=== PATIENT | male | born 1980 | race Caucasian/White ===

== ENCOUNTER 2018-11-29 06:08 | Emergency (ER) | payer BC, SELFPAY ==
[2018-11-29] MEDS ORDERED: DOXYCYCLINE 100 MG CAP PO ONE (06:46)
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
[2018-11-29] MEDS ORDERED: KETOROLAC 30 MG/ML INJ ONE (07:11)
[2018-11-29] MEDS ORDERED: CYCLOBENZAPRINE 10 MG TAB ONE (07:11)
--- NOTE | 2018-11-29 10:40 | EKG ---
Test Date: 2018-11-29 Test Time: 06:54:27 Assistant Corporate Secretary: NOAH MEASUREMENT RESULTS: Intervals: Rate: 90 FL: 172 QRSD: 94 QT: 352 QTc: 430 Springer: P: 48 FL: 172 QRS: 46 T: 46 INTERPRETIVE STATEMENTS: Normal sinus rhythm Normal ECG Compared to ECG 11/01/2007 06:48:39 No significant changes Electronically Signed On 11-29-18 10:39:22 CDT by Wyatt Herrmann
== END 2018-11-29 07:16 | disposition home or self-care (01) ==
LOC: ER 06:08
DX: S40.261A Insect bite (nonvenomous) of right shoulder, initial encounter (principal); I10 Essential (primary) hypertension; F90.9 Attention-deficit hyperactivity disorder, unspecified type; Z72.0 Tobacco use
CPT/HCPCS: 93005; 96372; 99283

== ENCOUNTER 2021-01-09 17:49 | Emergency (ER) | payer OTHER, SELFPAY ==
--- NOTE | 2021-01-09 18:54 | RAD REPORT ---
EXAM DESCRIPTION: RAD - Chest Pa And Lat (2 Views) - 01/09/2021 6:44 pm CLINICAL HISTORY: CHEST PAIN COMPARISON: CHEST PA AND LAT 2 VIEW dated 06/15/2008; CHEST PA AND LAT 2 VIEW dated 06/14/2008; CHEST SINGLE VIEW dated 06/08/2008; CHEST SINGLE VIEW dated 06/07/2008 FINDINGS: Lines: None. Lungs: No evidence of edema or pneumonia. Pleural: No significant pleural effusions or pneumothorax. Cardiac: The heart size is within normal limits. Bones: No acute fractures. Remote left-sided rib fractures . Other: IMPRESSION: No acute cardiopulmonary disease.
[2021-01-09 20:00] LABS: Absolute Lymphocytes (CBC) 1.2 K/uL (0.7-4.9); Basophils % 0.6 % (0-1.3); Hematocrit 48.6 % (39.6-49.0); Lymphocytes % 28.9 % (15.3-44.8); MPV 8.2 fL (7.6-11.3); RBC Red Blood Cell Count 5.31 M/uL (4.33-5.43)
[2021-01-09] MEDS ORDERED: KETOROLAC 30 MG/ML INJ ONE (20:08)
[2021-01-09 20:46] LABS: ALT/SGPT 57 U/L (12-78); AST/SGOT 38 U/L (15-37); Albumin 3.8 g/dL (3.4-5.0); Alkaline Phosphatase 71 U/L (45-117); BUN Blood Urea Nitrogen 10 mg/dL (7-18); Bicarbonate 30 mmol/L (21-32); Bilirubin Direct 0.1 mg/dL (0-0.2); Bilirubin Total 0.4 mg/dL (0.2-1.0); Glucose Level 93 mg/dL (74-106); Magnesium 2.1 mg/dL (1.8-2.4); NT PRO-BNP 13 pg/mL (<125); Potassium 4.7 mmol/L (3.5-5.1); Protein, Total 7.2 g/dL (6.4-8.2); Sodium Level 140 mmol/L (136-145); Troponin (Emerg Dept Use Only) < 0.02 ng/mL (0.0-0.045)
[2021-01-09 21:14] LABS: Protime INR 0.96
--- NOTE | 2021-01-09 21:50 | RAD REPORT ---
EXAM DESCRIPTION: CT - Chest For Pe Angio - 01/09/2021 9:39 pm CLINICAL HISTORY: CHEST PAIN COMPARISON: THORAX W CONTRAST dated 06/15/2008; THORAX W CONTRAST dated 06/01/2008; THORAX W CONTRAST dated 05/28/2008; THORAX WO CONTRAST dated 05/15/2008; Chest Pa And Lat (2 Views) dated 01/09/2021 FINDINGS: Chest Wall: No suspicious thyroid nodules or pathologic lymphadenopathy. gynecomastia. Lungs: Atelectasis at the left lung base. Pleura: No significant effusions or pneumothorax. Mediastinum/fareed: No pathologic lymphadenopathy. Mild thickening of distal esophagus may reflect esop hagitis. Pulmonary arteries/Aorta: No filling defect identified. No aortic aneurysm. Heart: No significant pericardial effusion. Normal heart size. Upper abdomen: No acute abnormality. Bones: No acute abnormality. Remote left-sided rib fractures. All CT scans are performed using dose optimization technique as appropriate and may include automated exposure control or mA/KV adjustment according to patient size. Bones: No acute fracture. Remote left-sided rib fractures. IMPRESSION: Negative for pulmonary embolism. No acute findings within the chest.
--- NOTE | 2021-01-09 22:05 | ER ---
Nurse's Notes [facility] Name: Shaheen Bolanos Age: 40 yrs Sex: Male : 1980 Arrival Date: 01/09/2021 Time: 17:50 Bed 25 Private MD: Gino Cason Diagnosis: Chest pain, unspecified Presentation: 01/09 18:22 Chief complaint: Patient states: sharp back pain radiates to chest. POSTIVE COVID 1 tw2 week ago. Coronavirus screen: Client presents with at least one sign or symptom that may indicate coronavirus-19. Standard/surgical mask placed on the client. Provider contacted for isolation considerations. Client reports previous positive COVID test result. Ebola Screen: Patient denies travel to an Ebola-affected area in the 21 days before illness onset. Initial Sepsis Screen: Does the patient meet any 2 criteria? No. Patient's initial sepsis screen is negative. Does the patient have a suspected source of infection? No. Patient's initial sepsis screen is negative. Risk Assessment: Do you want to hurt yourself or someone else? Patient reports no desire to harm self or others. Onset of symptoms was January 09, 2021. 18:22 Method Of Arrival: Wheelchair tw2 18:22 Acuity: JOAQUIN 3 tw2 Triage Assessment: 18:24 General: Appears in no apparent distress. uncomfortable, well groomed, Behavior is tw2 calm, cooperative, appropriate for age. Pain: Complains of pain in back and chest. Cardiovascular: Reports chest pain. Historical: - Home Meds: 18:23 Adderall XR Oral [Active]; lisinopril 40 mg oral tab 1 tab once daily [Active]; tw2 - PMHx: 18:23 ADD/ADHD; Hypertension; tw2 - PSHx: 18:23 lung scraped from staph infection from chest tube 2008; tw2 - Immunization history:: Adult Immunizations Client reports having NOT received the Covid vaccine. - Social history:: Smoking status: . Screenin:53 Abuse screen: Denies threats or abuse. Denies injuries from another. Nutritional aj2 screening: No deficits noted. Tuberculosis screening: No symptoms or risk factors identified. 18:53 Fall Risk None identified. aj2 Assessment: 18:53 Pain: Complains of pain in right scapular area Pain currently is 10 out of 10 on a pain aj2 scale. Pain began 14hrs ago Is continuous, Alleviated by nothing. Aggravated by increased activity, repositioning. 21:10 Pain: Quality of pain is described as aching, Alleviated by Aggravated by repositioning.wr 22:28 Pain: Denies pain. kc4 Vital Signs: 18:22 BP 119 / 93; Pulse 83; Resp 17; Temp 97.9(TE); Pulse Ox 100% on R/A; Weight 74.84 kg tw2 (R); Pain 10/10; 18:53 BP 119 / 93; Pulse 83; Resp 18; Temp 97.9; Pulse Ox 100% ; aj2 20:39 BP 118 / 79 LA Sitting (auto/reg); Pulse 54 MON; Resp 16 S; Temp 98.8(O); Pulse Ox 100% kc4 on R/A; Pain 0/10; 22:28 BP 131 / 81; Pulse 62; Resp 18; Temp 98.7; Pulse Ox 100% on R/A; Pain 0/10; kc4 ED Course: 17:50 Patient arrived in ED. am2 17:50 Gino Cason MD is Private Physician. am2 18:21 EKG completed in triage. Results shown to MD. tw2 18:23 Triage completed. tw2 18:44 XRAY Chest Pa And Lat (2 Views) In Process Unspecified. EDMS 18:45 Kaiden Gonzalez PA is PHCP. jmm 18:45 Carlos Vela MD is Attending Physician. jmm 18:53 Makenna Monsivais is Primary Nurse. aj2 18:53 No apparent distress. No apparent distress. Resting quietly. aj2 18:53 Patient has correct armband on for positive identification. monitoring coordinator on. Pulse aj2 ox on. NIBP on. 18:53 No provider procedures requiring assistance completed. Patient did not have IV access aj2 during this emergency room visit. Patient maintains SpO2 saturation greater than 95% on room air. 19:50 Inserted saline lock: 20 gauge in right antecubital area, using aseptic technique. kc4 20:41 D-Dimer Sent. kc4 20:41 Basic Metabolic Panel Sent. kc4 20:41 LFT's Sent. kc4 20:41 Magnesium Sent. kc4 20:41 NT PRO-BNP Sent. kc4 20:41 PT-INR Sent. kc4 20:41 Troponin (emerg Dept Use Only) Sent. kc4 21:39 CT Chest For PE Angio In Process Unspecified. EDMS 22:04 Gino Cason MD is Referral Physician. fernando 22:28 Arm band placed on right wrist. Patient notified of wait time. EKG completed in triage. kc4 Results shown to MD. EKG completed in triage. Results shown to MD. 22:28 IV discontinued, intact, bleeding controlled, No redness/swelling at site. Pressure kc4 dressing applied. Administered Medications: 19:47 Drug: Ketorolac 30 mg Route: IVP; Site: right antecubital; wr 20:41 Follow up: Response: No adverse reaction kc4 Outcome: 22:04 Discharge ordered by . fernando 22:27 Discharged to home ambulatory. kc4 22:27 Condition: stable 22:27 Condition: improved 22:27 Discharge instructions given to patient, Instructed on discharge instructions, follow up and referral plans. Demonstrated understanding of instructions, follow-up care. 22:29 Patient left the ED. kc4 Signatures: Dispatcher [employer] EDMS Kaiden Gonzalez PA PA Nataliya Carballo RN RN vitor2 Lizbeth Suh Angelea aj2 Chuman, Kourtney kc4 Aaron Rodrigues
--- NOTE | 2021-01-09 22:05 | EDPHYS ---
Physician Documentation [facility] Name: Shaheen Bolanos Age: 40 yrs Sex: Male : 1980 Arrival Date: 01/09/2021 Time: 17:50 Bed 25 Private MD: Gino Cason ED Physician Calros Vela HPI: 01/09 19:23 This 40 yrs old Male presents to ER via Wheelchair with complaints of Chest jmm Pain, Back Pain, High Blood Pressure. 19:23 The patient or guardian reports chest pain that is located primarily in the substernal [facility] area. Onset: gradually. Onset: The symptoms/episode began/occurred gradually, 1 day(s) ago. This is a 40-year-old male with a history of hypertension that presents emerged department with complaints of recent Covid diagnosis with symptoms beginning approximately 1 week ago. Patient states he developed some back pain which now radiates to the chest beginning today. Denies history of coronary artery disease.. Historical: - Home Meds: 18:23 Adderall XR Oral [Active]; lisinopril 40 mg oral tab 1 tab once daily [Active]; tw2 - PMHx: 18:23 ADD/ADHD; Hypertension; tw2 - PSHx: 18:23 lung scraped from staph infection from chest tube 2008; tw2 - Immunization history:: Adult Immunizations Client reports having NOT received the Covid vaccine. - Social history:: Smoking status: . ROS: 19:23 Constitutional: Negative for fever, chills, and weight loss. jmm 19:23 Cardiovascular: Positive for chest pain. 19:23 All other systems are negative. Exam: 19:23 Constitutional: This is a well developed, well nourished patient who is awake, alert, jmm and in no acute distress. Head/Face: atraumatic. Eyes: EOMI, no conjunctival erythema appreciated ENT: Moist Mucus Membranes Neck: Trachea midline, Supple Chest/axilla: Normal chest wall appearance and motion. Cardiovascular: Regular rate and rhythm. No edema appreciated Respiratory: Normal respirations, no respiratory distress appreciated Abdomen/GI: Non distended, soft Back: Normal ROM Skin: General appearance color normal MS/ Extremity: Moves all extremities, no obvious deformities appreciated, no edema noted to the lower extremities Neuro: Awake and alert, normal gait Psych: Behavior is normal, Mood is normal, Patient is cooperative and pleasant Vital Signs: 18:22 BP 119 / 93; Pulse 83; Resp 17; Temp 97.9(TE); Pulse Ox 100% on R/A; Weight 74.84 kg tw2 (R); Pain 10/10; 18:53 BP 119 / 93; Pulse 83; Resp 18; Temp 97.9; Pulse Ox 100% ; aj2 20:39 BP 118 / 79 LA Sitting (auto/reg); Pulse 54 MON; Resp 16 S; Temp 98.8(O); Pulse Ox 100% kc4 on R/A; Pain 0/10; 22:28 BP 131 / 81; Pulse 62; Resp 18; Temp 98.7; Pulse Ox 100% on R/A; Pain 0/10; kc4 MDM: 19:20 Patient medically screened. fernando 22:04 Data reviewed: vital signs, nurses notes. Counseling: I had a detailed discussion with fernando the patient and/or guardian regarding: the historical points, exam findings, and any diagnostic results supporting the discharge/admit diagnosis, radiology results, the need for outpatient follow up, to return to the emergency department if symptoms worsen or persist or if there are any questions or concerns that arise at home. 01/09 18:56 Order name: Basic Metabolic Panel; Complete Time: 20:49 [facility] 01/09 18:56 Order name: CBC with Diff; Complete Time: 20:09 [facility] 01/09 18:56 Order name: LFT's; Complete Time: 20:49 [facility] 01/09 18:56 Order name: Magnesium; Complete Time: 20:49 [facility] 01/09 18:56 Order name: NT PRO-BNP; Complete Time: 20:49 [facility] 01/09 18:56 Order name: PT-INR; Complete Time: 21:17 [facility] 01/09 18:19 Order name: XRAY Chest Pa And Lat (2 Views); Complete Time: 18:55 tw01/09 18:19 Order name: EKG - Nurse/Tech; Complete Time: 18:19 2 01/09 18:56 Order name: Troponin (emerg Dept Use Only); Complete Time: 20:49 [facility] 01/09 18:56 Order name: EKG; Complete Time: 18:56 [facility] 01/09 18:56 Order name: D-Dimer; Complete Time: 21:17 [facility] 01/09 21:18 Order name: CT Chest For PE Angio; Complete Time: 21:53 [facility] 01/09 18:56 Order name: Cardiac monitoring; Complete Time: 19:18 [facility] 01/09 18:56 Order name: IV Saline Lock; Complete Time: 19:47 [facility] 01/09 18:56 Order name: Labs collected and sent; Complete Time: 19:51 [facility] 01/09 18:56 Order name: O2 Per Protocol; Complete Time: 19:51 [facility] 01/09 18:56 Order name: O2 Sat Monitoring; Complete Time: 19:18 [facility] Administered Medications: 19:47 Drug: Ketorolac 30 mg Route: IVP; Site: right antecubital; wr 20:41 Follow up: Response: No adverse reaction kc4 Disposition Summary: 01/09/21 22:04 Discharge Ordered Location: Home [facility] Condition: Stable [facility] Diagnosis - Chest pain, unspecified [facility] Followup: [facility] - With: Gino Cason MD - When: 2 - 3 days - Reason: Recheck today's complaints, Continuance of care, Re-evaluation by your physician Discharge Instructions: - Discharge Summary Sheet [facility] - Nonspecific Chest Pain, Adult [facility] Forms: - Medication Reconciliation Form [facility] - Thank You Letter [facility] - Antibiotic Education [facility] - Prescription Opioid Use [facility] Addendum: 01/12/2021 17:41 Co-signature as Attending Physician, Carlos Vela MD. m a2 Signatures: Dispatcher [employer] EDKaiden Santos PA PA [facility] Ntaaliya Sam RN RN tw2 Carlos Vela MD MD ma2 Aaron Rodrigues Kourtney kc4 Corrections: (The following items were deleted from the chart) 01/09 18:19 18:19 Rhythm Strip ordered. tw2 tw2
[2021-01-09 23:16] VITALS: O2SAT 100
[2021-01-09 23:21] VITALS: BP 131/81; TEMP 98.7
== END 2021-01-09 22:29 | disposition home or self-care (01) ==
LOC: ER 17:49
DX: R07.9 Chest pain, unspecified (principal); I10 Essential (primary) hypertension; F90.9 Attention-deficit hyperactivity disorder, unspecified type
CPT/HCPCS: 93005; 85025; 80048; 36415; 83735; 85610; 85379; 80076; 84484; 83880; 71275; 71046; 96374; 99285; Q9967